=== PATIENT | male | born 1955 | race Caucasian/White ===

== ENCOUNTER 2025-08-25 09:21 | Outpatient (AMB) | payer MEDICARE, SELFPAY ==
--- NOTE | 2025-08-25 09:26 | A.PHYSOV_ITS ---
Vital Signs 08/25/25 09:30 Height 5 ft 7 in Weight 230 lb BMI 36.0 Intake Visit Reasons: F/U after injection 07/24/2025 Intake Note: Patient is a 70 year old male here for follow up after bilateral L4-L5 and L5-S1 facet injections on 07/24/25 State Appellate Clerk Required: No Allergies lisinopril Allergy (Unknown, Verified 08/25/25 09:27) Unknown HPI Comments Details: History of Present Illness The patient is a 70-year-old individual presenting with low back pain and arthritis. The low back pain has improved by approximately 70% since the L4-5, L5-S1 facet injection on 07/24/2025, with the patient reporting increased stamina in activities such as walking, standing, and bending. The patient experiences mild pain occasionally, particularly after activities like mowing the yard, but it does not persist. Overall, he is very happy with his results. Pain Description - Onset: Pain has been present but improved by 70% since the last visit. - Quality: Mild pain, particularly after physical activities like mowing the yard. - Location: Low back, with occasional increased discomfort on the left side. - Exacerbating factors: Physical activities such as mowing the yard. - Relieving factors: Cortisone injection has decreased inflammation and pain. Procedure: Bilateral L4-5, L5-S1 facet injection 07/24/2025 [facility] Surgical History History of back surgery (Unknown) Social History (Updated 08/25/25 @ 09:29 by Chloé Neal MA) Alcohol intake: current Alcohol intake frequency: 0-2 drinks per day Alcohol type: beer Patient Tobacco Use Status: Current everyday Tobacco user Use of substances other than those prescribed or required for medical reasons: Yes Substance Use Type: Marijuana Review of Systems Narrative Review of Systems - Musculoskeletal: Reports low back pain, improved by 70%, occasional mild pain after physical activities. - General: Denies current pain at the time of visit. Physical Exam Exam Exam: Physical Exam Lumbar Spine: Examination of his lumbar spine, there is no visible swelling or deformity. He is tender to lower lumbar facets. He is otherwise nontender. Full range of motion of his lumbar spine. He has less pain with facet loading. Special Tests: Lhermittes sign was negative Heel Toe walk is normal Left straight leg raise: Negative Right straight leg raise: Negative Special tests Cy test is negative Ganslen's test is negative SI Joint compression test negative Remigio test negative Piriformis stretch is negative Lower Extremities: Full range of motion bilateral lower extremities. No calf pain or edema. Neuro: Sensation: Intact to lower extremities bilaterally Strength L2 (Psoas): 5/5 on the left and 5/5 on the right. L3 (Quads): 5/5 on the left and 5/5 on the right. L4 (Ant tibialis): 5/5 on the left and 5/5 on the right. L5 (EHL) 5/5 on the left and 5/5 on the right. S1 (Gastroc): 5/5 on the left and 5/5 on the right. DTR L4: (Patellar) Left 1 Right 1 S1: (Achilles) Left 1 Right 1 Babinski Downgoing No pathologic clonus. No involuntary movement. Vital Signs: BMI result Body Mass Index 36.0 Assessment & Plan Assessment & Plan (1) Vertebrogenic low back pain: Code(s): M54.51 - Vertebrogenic low back pain Category: Medical (2) Lumbar spondylosis: Code(s): M47.816 - Spondylosis without myelopathy or radiculopathy, lumbar region Category: Medical Plan Pain Management - Affect: The patient is generally satisfied with the pain management results. - Analgesia: Cortisone injection targeting arthritis and back pain, providing relief for three to six months. - Activities of Daily Living: Increased stamina in walking, standing, and bending. - Adverse Effects: None reported from the cortisone injection. - Aberrant Drug Related Behaviors: None reported. Plan Patient was informed and verbally consented to the use of an ambient scribe for clinic note documentation during this visit. 1. Low Back Pain The patient has been experiencing low back pain, which has improved by 70% since the last visit. A cortisone injection was administered to target the pain, providing relief by decreasing inflammation. The patient is advised to continue engaging in low-impact activities such as walking, biking, swimming, and yoga to maintain health and manage symptoms. 2. Arthritis The patient has arthritis, which is being managed with cortisone injections to reduce inflammation and pain. The effects of the injection typically last three to six months, and the procedure can be repeated every four months if necessary. The patient is encouraged to maintain an active lifestyle with low-impact exercises to support joint health. Thank you for allowing me to participate in the care of your patient. Coding Level of Care Code Tele Est Pt Level 3 (81999) Diagnoses Vertebrogenic low back pain M54.51 Lumbar spondylosis M47.816
[2025-08-25 09:30] VITALS: BMI 36.0
--- OUTSIDE RECORDS SUMMARY | 2025-08-25 10:34 | XMS_ITS ---
Author Name [facility] Organization Unknown Care Team Organization Name Specialty Phone Email Start Date End Da te [facility] ACO 05/20/2025 [facility] Yaneth Torrez Primary Care 09/12/202305/01 [facility] Norberto Calixto Primary Care 02/05/2023 024 [facility] Kathy, PROVIDER Primary Care 10/09/202205/01
--- OUTSIDE RECORDS SUMMARY | 2025-08-25 10:34 | XMS_ITS | Clinical Summary ---
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 Inject 300 mg/2ml into skin every 14 days 1 Active mometasone (ELOCON) 0.1 % cream 3 Active timolol (TIMOPTIC) 0.5 % ophthalmic solution INSTILL 1 DROP INTO BOTH EYES TWICE A DAY 2 Active atorvastatin (LIPITOR) 20 mg tablet Take 1 tablet (20 mg total) by mouth at bedtime. at bedtime. 90 tablet 1 5 Active spironolactone (ALDACTONE) 25 mg tablet Take 1 tablet (25 mg total) by mouth 1 (one) time each day. 90 tablet 1 5 Active amLODIPine (NORVASC) 10 mg tablet TAKE 1 TABLET BY MOUTH EVERY DAY AT BEDTIME 90 tablet 1 Active metoprolol succinate (TOPROL-XL) 50 mg 24 hr tablet TAKE 1 TABLET BY MOUTH EVERY DAY AT BEDTIME. 90 tablet 1 5 Active hydrALAZINE (APRESOLINE) 25 mg tablet TAKE 1 TABLET BY MOUTH TWICE A DAY 180 tablet 1 Active hydrALAZINE (APRESOLINE) 25 mg tablet TAKE 1 TABLET BY MOUTH TWICE A DAY 180 tablet 1 5 08/05/20 Discontinued Active Problems Problem Noted Date Diagnosed Date Current every day smoker 04/30/2025 Spondylosis of lumbar region without myelopathy or radiculopathy 04/30/2025 Alcohol abuse 09/28/2023 Low iron 06/28/2022 Elevated ferritin 03/28/2022 Fatty liver disease, nonalcoholic 03/28/2022 Epidural lipomatosis 03/24/2022 Overview (09/13/2024): MRI: 03/24/22 Hand eczema 12/18/2017 Overview (08/05/2024): ARINA Brandt Hyperlipidemia 12/18/2017 Obesity (BMI 30.0-34.9) 12/18/2017 Essential hypertension, benign 01/02/2006 Encounters Date Type Department Care Team Description 06/05/2025 9:39 AM EDT - 06/05/2025 11:59 PM EDT Hospital Encounter [facility] MRI [address] [place] [id number] Chest pain Discharge Disposition: Home or Self Care from Last 3 Months Immunizations Immunization Administration Dates Next Due Influenza Quadravalent, MDCK , 0.5ml, preservative free (Flucelvax) 6mo and older 08/11/2020,09/09/2019,07/02/2018 Influenza trivalent, 0.5mL ( Fluad) 65yo and older 09/28/2023,08/14/2022,08/09/2021 Influenza trivalent, 0.5mL ( Fluzone High-dose) 65yo and older 08/17/2025 Pneumococcal conjugate 20 va lent (Prevnar 20, PCV 20) 2mo and older 09/16/2024 Td Tetanus diptheria (Tdvax) 7yo and older 03/16 Tdap Tetanus diptheria acell ular pertussis (Boostrix; Adacel) 7yo and older 01/30/2013 Zoster recombinant (Shingrix ) 19yo and older 02/15/2022,09/15/2021 Surgical History Surgery Date Site/Laterality Comments COLONOSCOPY 03/16/2011 Normal LUMBAR SPINE SURGERY 10/01/2021 - 09/30/2022 s/p L4-5, L5-S1 lumbar decompression for epidural lipomatosis Medical History Medical History Date Comments Essential hypertension, benign 01/02/2006 Eczema 01/11/2017 Alcohol abuse 09/28/2023 Elevated ferritin 03/28/2022 Epidural lipomatosis 03/24/2022 MRI: Last Assessment & Plan: Lizette is about 2 weeks status post lumbar decompression for epidural lipomatosis. Since the surgery he has had improvement in his ability to ambulate without pain in the legs. He is pleased with his early postoperative results and I am as well. I did encourage him to get as close as possible to his ideal body weight so as to avoid recurrence of Fatty liver disease, nonalcoholic 03/28/2022 Hand eczema 12/18/2017 ARINA Brandt Hyperlipidemia 12/18/2017 Low iron 06/28/2022 Family History Medical History Relation Name Comments Other: MVA Father Heart failure Mother stroke Relation Name Status Comments Father Mother Social History Tobacco Use Types Packs/Day Years Used Date Smoking Tobacco: Every Day Cigarettes Smokeless Tobacco: Never Tobacco Cessation:Ready to Q uit: Not Asked; Counseling Given: Not Answered Alcohol Use Standard Drinks/Week Comments Not Currently 0 (1 standard drink = 0.6 oz pur e alcohol) Sex and Gender Information Value Date Recorded Sex Assigned at Male 05/05/2025 9:46 PM EDT Legal Sex Male 6:10 PM EST Gender Identity Not on file Sexual Orientation Not on file Obstetrics History Last Filed Vital Signs Vital Sign Reading Time Taken Comments Blood Pressure 134/72 04/30/2025 8:32 AM EDT Pulse 77 04/30/2025 8:32 AM EDT Temperature 36.2 C (97.1 F) 04/30/2025 8:32 AM EDT Respiratory Rate 14 04/30/2025 8:32 AM EDT Oxygen Saturation 97% 04/30/2025 8:32 AM EDT Inhaled Oxygen Concentration - - Weight 111 kg (244 lb) 04/30/2025 8:32 AM EDT Height 170.2 cm (5' 7 ) 04/30/2025 8:32 AM EDT Body Mass Index 38.22 04/30/2025 8:32 AM EDT Plan of Treatment Upcoming Encounters Date Type Department Care Team (Late st Contact Info) Description 11/03/2025 8:45 AM EST Office Visit Adult Medicine [facility] [address] [place], [place] [phone] Janie Camp MD [address], [place] Health Maintenance Due Date Last Done Comments Hepatitis A Vaccines (1 of 2 - Risk 2-dose series) 1975 Social Influencers of Health Screening 09/09/2022 Medicare Annual Wellness Visit 02/11/2025 02/12/2024 COVID-19 Vaccine ( season) 2026 08/17/2025, 07/22/2024, 07/23/2023, Additional history exists Falls Risk Assessment 04/30/2026 04/30/2025, 023 Hypertension/CHF/CAD Annual BMP Blood Test 04/30/2026 04/30/2025, 09/16/2024, 09/28/2023 Lung Cancer Screening (Low Dose CT) 05/08/2026 05/08/2025, 05/10/2024, 05/08/2024, Additional history exists Cholesterol Screening (Lipid Panel) 09/16/2029 09/16/2024, 05/16/2023 RSV Immunization Adult Patients (1 - 1-dose 75+ series) 2031 Colorectal Cancer Screening: Colonoscopy 09/19/2032 09/19/2022 DTaP,Tdap,and Td Vaccines (3 - Td or Tdap) 03/16/2033 03/16/2023, 01/30/2013 Hepatitis C Screening Completed 08/21/2017 Zoster Vaccines Completed 02/15/2022, 09/15/2021 Abdominal Aortic Aneurysm (AAA) Screen Completed 03/28/2022, 08/24/2021 Pneumococcal Vaccine: 50+ Years Completed 09/16/2024 Depression Screening Completed 04/30/2025, 02/12/20 Influenza Vaccine Completed 08/17/2025, , 09/28/2023, Additional history exists HIB Vaccines Aged Out No longer eligi ble based on patient's age to complete this topic HPV Vaccines Aged Out No longer eligi ble based on patient's age to complete this topic Hepatitis B Vaccines Aged Out No long er eligible based on patient's age to complete this topic IPV Vaccines Aged Out No longer eligi ble based on patient's age to complete this topic MMR Vaccines Aged Out No longer eligi ble based on patient's age to complete this topic Meningococcal ACWY Vaccine Aged Out N o longer eligible based on patient's age to complete this topic Meningococcal B Vaccine Aged Out No l onger eligible based on patient's age to complete this topic RSV Immunization Patients Under 20 months Aged Out No longer eligible based on patient's age to complete this topic Varicella Vaccines Aged Out No longer eligible based on patient's age to complete this topic Procedures Procedure Name Priority Date/Time Associated Diagnosis Comments MR LUMBAR SPINE WO AND W CONTRAST Routine 06/05/2025 10:51 AM EDT Chest pain CT LUNG SCREENING Routine 05/08/2025 11: 45 AM EDT Encounter for screening for malignant neoplasm of respiratory organs Personal history of nicotine dependence COMPREHENSIVE METABOLIC PANEL Routine 04/30/2025 9:25 AM EDT Other hyperlipidemia Essential hypertension, benign LIPID PANEL WITH REFLEX TO DIRECT LDL Routine 09/16/2024 9:36 AM EST Other hyperlipidemia DEPRESSION SCREENING Routine 02/12/2024 FALLS RISK ASSESSMENT Routine 09/28/2023 COLONOSCOPY Routine 09/19/2022 ABDOMINAL AORTIC ANEURYSM SCRREN Routine 03/28/2022 HEPATITIS C SCREENING Routine 08/21/2017 from Last 3 Months or Most Recently Relevant to Health Maintenance Results * MR Lumbar Spine wo and w Contrast (06/05/2025 10:51 AM EDT) Anatomical Region Laterality Modality L-spine, Spine Magnetic Resonan ce 06/09/2025 12:2 6 PM EDT Impressions 06/09/2025 1:23 PM EDT Left L4-5 laminotomy. Degenerative changes at L4-5, with mild bilateral foraminal stenosis, widening of the left facet joint suggesting hypermobility, and moderate bilateral facet arthropathy. -------- FINAL REPORT -------- Dictated By: Jasvir Sahu Dictated Date: 06/09/2025 12:26 ET Assigned Physician: Jasvir Sahu Reviewed and Electronically Signed By: Jasvir Sahu Signed Date: 06/09/2025 13:23 ET Workstation ID: [id number] Transcribed By: Self Edit Transcribed Date: 06/09/2025 13:17 ET Narrative 06/09/2025 1:23 PM EDT PROCEDURE: MRI of the lumbar spine with intravenous contrast. HISTORY: spinal stensosis. TECHNIQUE: Sagittal and axial multisequence MRI of the lumbar spine with and without intravenous contrast administration. IV contrast dose: 20 mL intravenous Dotarem from a 20 mL vial with 0 mL discarded. COMPARISON: Radiographs dated 04/30/2025. FINDINGS: There are small diverticula arising from the right posterior urinary bladder. Postsurgical scarring in the midline posterior lumbar soft tissues. No other paraspinous soft tissue findings. Normal alignment. No compression deformity. No suspicious marrow infiltrative lesion. Normal position of the conus at T12-L1. No abnormal enhancement of the conus or nerve roots of the cauda equina. Lumbar disc levels: L1-2: No significant disc or facet abnormality. No spinal or foraminal stenosis. L2-3: Small anterior endplate osteophytes. No spinal or foraminal stenosis. L3-4: Minimal symmetric disc osteophyte complex. Minimal degenerative irregularity of the facet joints with slight facet joint widening suggesting minimal hypermobility. No spinal or foraminal stenosis. L4-5: Minimal endplate irregularity. Small disc bulge eccentric to the right with minimal endplate osteophytes. Left laminotomy defect. Moderate bilateral facet arthropathy. Widening of the left facet joint suggestive of hypermobility. Mild right foraminal stenosis. No spinal stenosis. L5-S1: Minimal degenerative irregularity of the facet joints. No spinal or foraminal stenosis. Procedure Note Jasvir Sahu MD - 06/09/2025 PROCEDURE: MRI of the lumbar spine with intravenous contrast. HISTORY: spinal stensosis. TECHNIQUE: Sagittal and axial multisequence MRI of the lumbar spine withand without intravenous contrast administration. IV contrast dose: 20 mL intravenous Dotarem from a 20 mL vial with 0 mLdiscarded. COMPARISON: Radiographs dated 04/30/2025. FINDINGS: There are small diverticula arising from the right posterior urinarybladder. Postsurgical scarring in the midline posterior lumbar softtissues. No other paraspinous soft tissue findings. Normal alignment. No compression deformity. No suspicious marrowinfiltrative lesion. Normal position of the conus at T12-L1. No abnormal enhancement of theconus or nerve roots of the cauda equina. Lumbar disc levels: L1-2: No significant disc or facet abnormality. No spinal or foraminalstenosis. L2-3: Small anterior endplate osteophytes. No spinal or foraminalstenosis. L3-4: Minimal symmetric disc osteophyte complex. Minimal degenerativeirregularity of the facet joints with slight facet joint wideningsuggesting minimal hypermobility. No spinal or foraminal stenosis. L4-5: Minimal endplate irregularity. Small disc bulge eccentric to theright with minimal endplate osteophytes. Left laminotomy defect.Moderate bilateral facet arthropathy. Widening of the left facet jointsuggestive of hypermobility. Mild right foraminal stenosis. No spinalstenosis. L5-S1: Minimal degenerative irregularity of the facet joints. No spinalor foraminal stenosis. IMPRESSION: Left L4-5 laminotomy. Degenerative changes at L4-5, with mild bilateral foraminal stenosis,widening of the left facet joint suggesting hypermobility, and moderatebilateral facet arthropathy. -------- FINAL REPORT -------- Dictated By: Jasvir Sahu Dictated Date: 06/09/2025 12:26 ET Assigned Physician: Jasvir Sahu Reviewed and Electronically Signed By: Jasvir Sahu Signed Date: 06/09/2025 13:23 ET Workstation ID: [id number] Transcribed By: Self Edit Transcribed Date: 06/09/2025 13:17 ET Jose [facility]OSTON IM[facility] MRI PROCEDURES Final Resul t * CT Lung Screening (05/08/2025 11:45 AM EDT) Anatomical Region Laterality Modality Chest Computed Tomogra phy 05/13/2025 8:07 AM EDT Impressions 05/13/2025 8:18 AM EDT No suspicious mass or nodule. No suspicious interval change LUNG RADS: Lung-RADS 2: BENIGN S Modifier (Significant or Potentially Significant Findings): None present No suspicious nonpulmonary findings. RECOMMENDATIONS: 12 month screening low dose CT -------- FINAL REPORT -------- Dictated By: Tavo Sanderson Dictated Date: 05/13/2025 08:07 ET Assigned Physician: Tavo Sanderson Reviewed and Electronically Signed By: Tavo Sanderson Signed Date: 05/13/2025 08:18 ET Workstation ID: [id number] Transcribed By: Self Edit Transcribed Date: 05/13/2025 08:07 ET Narrative 05/13/2025 8:18 AM EDT EXAMINATION: CT CHEST WITHOUT CONTRAST LUNG CANCER SCREENING, LOW DOSE CLINICAL INFORMATION: Lung cancer screening. Current smoker. COMPARISON: Portions of previous 05/08/24 TECHNIQUE: Multidetector CT. Examination of the chest. Examination of the chest without IV contrast. Reformatting in the coronal and sagittal planes. Device: EnStorage VCT DLP: 182 mGy-cm CTDI: 4.83 Dose optimization was performed including the use of low-dose iterative reconstruction technique with automatic exposure control based on patient size. Type of contrast: None Volume of IV contrast: None Volume of contrast discarded: 0 mL FINDINGS: LUNG: No abnormality of the trachea or mainstem bronchi. LUNG NODULES: There are no suspicious nodules or masses. There are a few scattered micronodules some of which are calcified and are unchanged. OTHER PULMONARY: There are some peripheral reticular opacities. No honeycomb formation. MEDIASTINUM: There are some mediastinal lymph nodes again demonstrated. These are unchanged including retrocaval pretracheal and aorticopulmonary window region. There may be some top normal hilar lymph nodes similar to previous. No suspicious abnormality of the esophagus. CARDIAC: The heart is not enlarged. No pericardial fluid or thickening There are moderate coronary calcifications. VASCULAR: There is no thoracic aortic aneurysm. The main pulmonary artery is normal caliber PLEURA: There is no pleural fluid or pneumothorax AXILLA/CHEST WALL: There are no enlarged axillary lymph nodes. No chest wall mass demonstrated. Extensive gynecomastia. VISUALIZED UPPER ABDOMEN: No suspicious abnormality on limited assessment of the visualized upper abdomen. MUSCULOSKELETAL: No suspicious focal bony lesion demonstrated. Multiple chronic right rib deformities. Procedure Note Tavo Sanderson MD - 05/13/2025 EXAMINATION: CT CHEST WITHOUT CONTRAST LUNG CANCER SCREENING, LOW DOSE CLINICAL INFORMATION: Lung cancer screening. Current smoker. COMPARISON: Portions of previous 05/08/24 TECHNIQUE: Multidetector CT. Examination of the chest. Examination of the chest without IV contrast. Reformatting in the coronal and sagittal planes. Device: EnStorage VCT DLP: 182 mGy-cm CTDI: 4.83 Dose optimization was performed including the use of low-dose iterativereconstruction technique with automatic exposure control based on patientsize. Type of contrast: None Volume of IV contrast: None Volume of contrast discarded: 0 mL FINDINGS: LUNG: No abnormality of the trachea or mainstem bronchi. LUNG NODULES: There are no suspicious nodules or masses. There are a few scattered micronodules some of which are calcified and areunchanged. OTHER PULMONARY: There are some peripheral reticular opacities. Nohoneycomb formation. MEDIASTINUM: There are some mediastinal lymph nodes again demonstrated.These are unchanged including retrocaval pretracheal and aorticopulmonarywindow region. There may be some top normal hilar lymph nodes similar toprevious. No suspicious abnormality of the esophagus. CARDIAC: The heart is not enlarged. No pericardial fluid or thickening There are moderate coronary calcifications. VASCULAR: There is no thoracic aortic aneurysm. The main pulmonary arteryis normal caliber PLEURA: There is no pleural fluid or pneumothorax AXILLA/CHEST WALL: There are no enlarged axillary lymph nodes. No chestwall mass demonstrated. Extensive gynecomastia. VISUALIZED UPPER ABDOMEN: No suspicious abnormality on limited assessmentof the visualized upper abdomen. MUSCULOSKELETAL: No suspicious focal bony lesion demonstrated. Multiplechronic right rib deformities. IMPRESSION: No suspicious mass or nodule. No suspicious interval change LUNG RADS: Lung-RADS 2: BENIGN S Modifier (Significant or Potentially Significant Findings): Nonepresent No suspicious nonpulmonary findings. RECOMMENDATIONS: [address] screening low dose [address] -------- FINAL REPORT -------- Dictated By: Tavo Sanderson Dictated Date: 05/13/2025 08:07 ET Assigned Physician: Tavo Sanderson Reviewed and Electronically Signed By: Tavo Sanderson Signed Date: 05/13/2025 08:18 ET Workstation ID: [id number] Transcribed By: Self Edit Transcribed Date: 05/13/2025 08:07 ET Nicole Ponce MD [facility] [place] PROCEDURES Final Result * (ABNORMAL) Comprehensive metabolic panel (04/30/2025 9:25 AM EDT) Sodium 134 133 - 145 mmol/L LAB CHEMISTRY METHOD 04/30/2025 1:39 PM [facility] Potassium 4.2 3.5 - 5.5 mmol/L LAB CHEMISTRY METHOD 04/30/2025 1:39 PM [facility] Chloride 104 96 - 110 mmol/L LAB CHEMISTRY METHOD 04/30/2025 1:39 PM [facility] CO2 23 21 - 32 mmol/L LAB CHEMISTRY METHOD 04/30/2025 1:39 PM [facility] Anion Gap 7 3 - 11 LAB CHEMISTRY METHOD 04/30/2025 1:39 PM [facility] Glucose 102(H) 70 - 100 mg/dL LAB CHEMISTRY METHOD 04/30/2025 1:39 PM [facility] BUN 12 5 - 25 mg/dL LAB CHE[facility]STR[facility] Creatinine 0.96 0.70 - 1.30 mg/dL LAB CHEMISTRY METHOD 04/30/2025 1:39 PM [facility] eGFR 86 >=60 mL/min/1. 73m2 LAB CHEMISTRY METHOD 04/30/2025 1:39 PM [facility] Comment:Calculation based on the Chronic Kidney Disease Epidemiology Collaboration (CKD-EPI) equation refit without adjustment for race. BUN/Creatinine Ratio 12.5 LAB CHEMISTRY METHOD 04/30/2025 1:39 PM [facility] Calcium 9.3 8.5 - 10.5 mg/dL LAB CHEMISTRY METHOD 04/30/2025 1:39 PM [facility] AST (SGOT) 14 10 - 42 unit/L LAB CHEMISTRY METHOD 04/30/2025 1:39 PM [facility] ALT (SGPT) 16 10 - 60 unit/L LAB CHEMISTRY METHOD 04/30/2025 1:39 PM [facility] Alkaline Phosphatase 75 42 - 121 unit/L LAB CHEMISTRY METHOD 04/30/2025 1:39 PM [facility] Total Protein 7.4 6.0 - 8.0 g/dL LAB CHEMISTRY METHOD 04/30/2025 1:39 PM [facility] Albumin 4.2 3.2 - 5.0 g/dL LAB CHEMISTRY METHOD 04/30/2025 1:39 PM [facility] Total Bilirubin 0.8 0.0 - 1.4 mg/dL LAB CHEMISTRY METHOD 04/30/2025 1:39 PM [facility] Blood Venous blood specimen / Unknown Venipuncture / Unknown 04/30/2025 9:25 AM EDT 04/30/2025 9:25 AM EDT us Alida BOSTON LAB BLOOD ORDERABLES Final Resul t [facility] [address] [place] [address], [place] [phone] * Lipid panel with reflex to direct LDL (09/16/2024 9:36 AM EST) Cholesterol 127 0 - 200 mg/dL LAB CHEMISTRY METHOD 09/16/2024 12:23 PM EST [facility] Triglycerides 82 0 - 150 mg/dL LAB CHEMISTRY METHOD 09/16/2024 12:23 PM EST [facility] HDL 48 >=40 mg/dL LAB CHEMISTRY METHOD 09/16/2024 12:23 PM EST [facility] LDL Calculated 63 0 - 100 mg/dL LAB CHEMISTRY METHOD 09/16/2024 12:23 PM EST [facility] VLDL Cholesterol Carmine 16.4 mg/dL LAB CHEMISTRY METHOD 09/16/2024 12:23 PM EST [facility] Non HDL Chol. (LDL+VLDL) 79 <145 mg/dL LAB CHEMISTRY METHOD 09/16/2024 12:23 PM EST [facility] Chol/HDL Ratio 2.6 0.0 - 4.4 LAB CHEMISTRY METHOD 09/16/2024 12:23 PM EST [facility] Blood Venous blood specimen / Unknown Venipuncture / Unknown 09/16/2024 9:36 AM EST 09/16/2024 9:36 AM EST Janie Camp MD LAB BLOOD ORDERABLES Final Resul t [facility] [address] [place] [address], [place] [phone] * Depression Screening (02/12/2024) Depression Screening Abstracted us Christophe Ball MD HEALTH MAINTENANCE Final Result * Falls Risk Assessment (09/28/2023) Falls Risk Assessment Abstracted Historical Provider HEALTH MAINTENANCE Final Result * Colonoscopy (09/19/2022) Colonoscopy Abstracted, no interpretation Anatomical Region Laterality Modality Other Historical Provider HEALTH MAINTENANCE Final Result * Abdominal Aortic Aneurysm Screen (03/28/2022) Abdominal Aortic Aneurysm (AAA) Screening Abstracted Anatomical Region Laterality Modality Other Historical Provider HEALTH MAINTENANCE Final Result * Hepatitis C Screening (08/21/2017) Hepatitis C Screening Abstracted [facility] Provider HEALTH MAINTENANCE Final Result from Last 3 Months or Most Recently Relevant to Health Maintenance [place] [address] MEDICARE [facility] Care Teams Plug Saw Operator Relationship Specialty Start Date End Date Janie aCmp MD [address] [place] [phone] PCP - General Internal Medicine 09/13/15
--- OUTSIDE RECORDS SUMMARY | 2025-08-25 10:34 | XMS_ITS | Clinical Summary ---
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 0 Active amLODIPine (NORVASC) tablet 10 mg Take 10 mg by mouth daily. 0 Active metoprolol succinate (TOPROL-XL) 24 hr tablet 50 mg Take by mouth daily. 0 Active hydrALAZINE (APRESOLINE) 10 MG tablet Take 10 mg by mouth 3 (three) times a day. 0 Active atorvastatin (LIPITOR) tablet 20 mg Take 20 mg by mouth daily. 0 Active timolol (TIMOPTIC) 0.5 % ophthalmic solution 1 drop 2 (two) times a day. 0 Active Dupilumab (Dupixent) 300 MG/2ML SOPN Inject under the skin. 0 Active mometasone (ELOCON) 0.1 % cream Apply topically daily. 0 Active Active Problems Problem Noted Date Diagnosed Date Elevated ferritin 06/28/2022 Low iron 06/28/2022 Social History Tobacco Use Types Packs/Day Years Used Date Smoking Tobacco: Every Day Cigarettes 1 Smokeless Tobacco: Never Alcohol Use Standard Drinks/Week Comments Yes 0 (1 standard drink = 0.6 oz pur e alcohol) 4-5 drinks a day. Sex and Gender Information Value Date Recorded Sex Assigned at Not on file Gender Identity Not on file Sexual Orientation Not on file Job Start Date Occupation Industry Not on file Not on file Not on file Last Filed Vital Signs Vital Sign Reading Time Taken Comments Blood Pressure 142/68 06/27/2022 2:38 PM EDT Pulse 87 06/27/2022 2:38 PM EDT Temperature 36.9 C (98.4 F) 06/27/2022 2:38 PM EDT Respiratory Rate - - Oxygen Saturation 100% 06/27/2022 2:38 PM EDT Inhaled Oxygen Concentration - - Weight 92.5 kg (204 lb) 06/27/2022 2:38 PM EDT Height 170.2 cm (5' 7 ) 06/27/2022 2:38 PM EDT Body Mass Index 31.95 06/27/2022 2:38 PM EDT Plan of Treatment Health Maintenance Due Date Last Done Comments Hepatitis C Screening 1955 COVID-19 Vaccine (#1) 01[birth year]17/1956 Pneumococcal Vaccine (1 of 2 - PCV) 1962 Depression Screening 1968 BMI Counseling 1974 Preventative Health Evaluation 1974 Tobacco Cessation Counseling 1974 Colon Cancer Screening (Colonoscopy) 2001 Abdominal Aortic Aneurysm (AAA) Screening 2021 Fall Risk Assessment 2021 DTap / Tdap / Td (2 - Td or Tdap) 01/30/2023 01/30/2013 Influenza Vaccine (#1) 2025 , 08/11/2020, 09/09/2019, Additional history exists RSV Adult > 60+ Yrs or (1 - 1-dose 75+ series) 2031 Shingrix-Zoster Vaccine Completed 02/15/2022, 09/15 Hepatitis B Vaccines Aged Out No long er eligible based on patient's age to complete this topic RSV Ped < 20 months Aged Out No longe r eligible based on patient's age to complete this topic Care Teams 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
== END 2025-08-25 09:45 | disposition home or self-care (01) ==
LOC: HO.HPHYS 09:21
PROVIDERS: PCP Internal Medicine; Visit Provider Physician Assistant
DX: M54.51 Vertebrogenic low back pain (principal); M47.816 Spondylosis without myelopathy or radiculopathy, lumbar region
CPT/HCPCS: 99213

== ENCOUNTER → 2025-08-25 09:21 | Outpatient (BNVA) | payer MEDICARE, SELFPAY | PROVIDERS: PCP Internal Medicine; Visit Provider Physician Assistant | DX: M54.51 Vertebrogenic low back pain (principal); M47.816 Spondylosis without myelopathy or radiculopathy, lumbar region | CPT/HCPCS: 99212 ==